=== PATIENT | male | born 1990 | race Caucasian/White ===

== ENCOUNTER 2016-08-04 18:02 | Emergency (ER) | payer OTHER ==
[~2016-08-04] VITALS: Ht 175.3 cm; Wt 100.0 kg
[~2016-08-04 18:02] MED LIST: ATIVAN 1MG T1 MG/TAB PO; BENADRYL50 MG PO; BUSPAR DIVIDOSE15 MG PO; CLEOCIN HC150 MG/CAP PO; DESYREL 100MG100 MG PO; DOXYCYCLINE 10100 MG PO; FLEXERIL 1010 MG/TAB PO; MINIPRESS 1M1 MG/CAP PO; MOBIC 7.5MG7.5 MG PO; MOTRIN 800800 MG/TAB PO; NAPROSYN500 MG PO; NEURONTIN600 MG/TAB PO; NORCO 325 MG-101 TAB PO; NORCO 325 MG-51 TAB PO; NORCO 325 MG-7.1 TAB PO; PAMELOR 10MG10 MG PO; PREDNISONE20 MG PO; PROZAC 20MG20 MG PO; ULTRAM 50MG TAB50 MG PO; VITAMIN D1000 IU PO; ZANAFLEX 4MG TAB4 MG PO; ZOFRAN 4MG T4 MG/TAB PO; ZOFRAN ODT4 MG PO
[2016-08-04 18:03] VITALS: TEMP 97.6
[2016-08-04 18:42] LABS: BASO % 0.4 % (0.0-2.0); EOS # 0.2 (0.0-0.7); EOS % 1.9 % (0-4.0); GRAN # 4.8 (1.4-6.5); GRAN % 59.7 % (42.2-75.2); LYMPH # 2.3 (1.2-3.4); LYMPH % 28.2 % (20.0-51.0); MEAN CELL VOLUME 95 fl (80.0-100.0); MEAN CORPUSCULAR HEMOGLOBIN 31 pg (27.0-31.0); MEAN CORPUSCULAR HGB CONC 33 g/dl (33.0-37.0); MEAN PLATELET VOLUME 9.6 fl (7.4-10.4); MONO # 0.8 (0.1-0.6); MONO % 9.5 % (1.7-9.3); PLATELET COUNT 240 K/mm3 (130-400); RED BLOOD COUNT 3.85 M/mm3 (4.20-5.60); REDCELL DISTRIBUTION WIDTH-CV 12.8 % (11.5-14.5)
[2016-08-04 18:44] LABS: HEMATOCRIT 36.6 % (42.0-52.0)
[2016-08-04 18:58] LABS: ADJUSTED CALCIUM 8.9 mg/dL (8.4-10.2); ALBUMIN 4.2 gm/dL (3.5-5.0); BILIRUBIN,TOTAL 0.7 mg/dL (0.0-1.0); CALCIUM 9.1 mg/dL (8.4-10.2); CREATININE, serum 0.98 mg/dL (0.66-1.25); POTASSIUM 4.3 mmol/L (3.4-5.0); TOTAL PROTEIN 7.7 gm/dL (6.4-8.2)
[2016-08-04 19:38] LABS: PH 7 (5-8); SQUAMOUS EPITHELIAL 0-2 /hpf; URINE APPEARANCE Clear; URINE BACTERIA None Seen /hpf; URINE BILIRUBIN Negative (NEGATIVE); URINE BLOOD Negative (NEGATIVE); URINE COLOR Yellow; URINE GLUCOSE Negative (NEGATIVE); URINE KETONE Negative (NEGATIVE); URINE RBC None Seen /hpf; URINE UROBILINOGEN Negative (NEGATIVE); URINE WBC 0-2 /hpf
[2016-08-04 20:19] VITALS: BP 140/107; PULSE 71
== END 2016-08-04 20:20 | disposition home or self-care (01) ==
LOC: COL.ER 18:02
PROVIDERS: Nurse Practitioner
DX: R10.12 Left upper quadrant pain (principal); I10 Essential (primary) hypertension; Z87.891 Personal history of nicotine dependence
CPT/HCPCS: J1170; J2405; J7030

== ENCOUNTER 2016-08-08 18:07 | Emergency (ER) | payer OTHER ==
[~2016-08-08] VITALS: Ht 175.3 cm; Wt 100.0 kg
[2016-08-08 18:09] VITALS: TEMP 98.4
[2016-08-08 19:24] LABS: BASO % 0.3 % (0.0-2.0); EOS # 0.2 (0.0-0.7); EOS % 2.4 % (0-4.0); GRAN # 5.1 (1.4-6.5); GRAN % 58.3 % (42.2-75.2); HEMATOCRIT 39.7 % (42.0-52.0); HEMOGLOBIN 13.2 g/dl (13.5-18.0); LYMPH # 2.6 (1.2-3.4); LYMPH % 30.3 % (20.0-51.0); MEAN CELL VOLUME 93 fl (80.0-100.0); MEAN CORPUSCULAR HEMOGLOBIN 31 pg (27.0-31.0); MEAN CORPUSCULAR HGB CONC 33 g/dl (33.0-37.0); MEAN PLATELET VOLUME 9.3 fl (7.4-10.4); MONO # 0.7 (0.1-0.6); MONO % 8.5 % (1.7-9.3); PLATELET COUNT 318 K/mm3 (130-400); RED BLOOD COUNT 4.28 M/mm3 (4.20-5.60); REDCELL DISTRIBUTION WIDTH-CV 12.8 % (11.5-14.5); WHITE BLOOD COUNT 8.7 K/mm3 (4.8-10.8)
[2016-08-08 19:25] LABS: ALBUMIN 4.5 gm/dL (3.5-5.0); BILIRUBIN,TOTAL 0.8 mg/dL (0.0-1.0); CALCIUM 9.4 mg/dL (8.4-10.2); CREATININE, serum 0.96 mg/dL (0.66-1.25)
[2016-08-08] MEDS ORDERED: CARAFATE 1GM1 G PO (20:22)
[2016-08-08] MEDS ORDERED: ZOFRAN ODT4 MG PO (20:22)
[2016-08-08] MEDS ORDERED: PROTONIX 40MG T40 MG PO (20:22)
[2016-08-08] MEDS ORDERED: PHENERGAN 25 TA25 MG PO (20:48)
[2016-08-08 20:51] VITALS: BP 112/74; PULSE 64
== END 2016-08-08 20:51 | disposition home or self-care (01) ==
LOC: COL.ER 18:07
PROVIDERS: Emergency Medicine
DX: R10.13 Epigastric pain (principal); R11.10 Vomiting, unspecified
CPT/HCPCS: C9113; J2405; J2550; J7030

== ENCOUNTER → 2016-10-01 | Outpatient (CLI) | payer OTHER ==
[~2016-10-01] MED LIST changes: +BUSPAR5 MG PO; +CARAFATE 1GM1 G PO; +NEURONTIN400 MG/CAP PO; +PHENERGAN 25 TA25 MG PO; +PROTONIX 40MG T40 MG PO; +PROZAC40 MG PO; +ZANAFLEX CAPSULE2 MG PO
== END ==
LOC: COL.RAD 08:11
DX: R11.2 Nausea with vomiting, unspecified (principal); R10.84 Generalized abdominal pain
CPT/HCPCS: A9537

== ENCOUNTER 2016-10-23 16:19 | Emergency (ER) | payer OTHER ==
[~2016-10-23] VITALS: Ht 175.3 cm; Wt 95.5 kg
[~2016-10-23 16:19] MED LIST changes: -BUSPAR5 MG PO; -NEURONTIN400 MG/CAP PO; -PROZAC40 MG PO; -ZANAFLEX CAPSULE2 MG PO
[2016-10-23 16:21] VITALS: BP 155/95; PULSE 100; TEMP 98.5
[2016-10-23] MEDS ORDERED: FLEXERIL 1010 MG/TAB PO (18:02)
== END 2016-10-23 18:41 | disposition home or self-care (01) ==
LOC: COL.ER 16:19
DX: S39.012A Strain of muscle, fascia and tendon of lower back, initial encounter (principal); S30.0XXA Contusion of lower back and pelvis, initial encounter; M62.830 Muscle spasm of back; W10.9XXA Fall (on) (from) unspecified stairs and steps, initial encounter
CPT/HCPCS: J1885; J2360

== ENCOUNTER 2017-02-04 18:55 | Emergency (ER) | payer OTHER ==
[~2017-02-04] VITALS: Ht 175.3 cm; Wt 102.5 kg
[2017-02-04 18:59] VITALS: TEMP 98.8
[2017-02-04] MEDS ORDERED: PROZAC40 MG PO (19:02)
[2017-02-04] MEDS ORDERED: BUSPAR5 MG PO (19:03)
[2017-02-04] MEDS ORDERED: NORCO 325 MG-51 TAB PO (19:04)
[2017-02-04] MEDS ORDERED: NEURONTIN400 MG/CAP PO (19:04)
[2017-02-04] MEDS ORDERED: ZANAFLEX CAPSULE2 MG PO (19:05)
[2017-02-04 19:53] LABS: BASO # 0.1 (0.0-0.2); BASO % 0.5 % (0.0-2.0); EOS # 0.1 (0.0-0.7); EOS % 0.8 % (0-4.0); GRAN # 7.6 (1.4-6.5); GRAN % 69.3 % (42.2-75.2); HEMATOCRIT 41.3 % (42.0-52.0); HEMOGLOBIN 13.8 g/dl (13.5-18.0); LYMPH # 2.5 (1.2-3.4); MEAN CELL VOLUME 94 fl (80.0-100.0); MEAN CORPUSCULAR HEMOGLOBIN 32 pg (27.0-31.0); MEAN CORPUSCULAR HGB CONC 33 g/dl (33.0-37.0); MEAN PLATELET VOLUME 9.7 fl (7.4-10.4); MONO # 0.7 (0.1-0.6); MONO % 6.1 % (1.7-9.3); PLATELET COUNT 308 K/mm3 (130-400); RED BLOOD COUNT 4.38 M/mm3 (4.20-5.60); REDCELL DISTRIBUTION WIDTH-CV 12.4 % (11.5-14.5); WHITE BLOOD COUNT 10.9 K/mm3 (4.8-10.8)
[2017-02-04 20:00] LABS: ADJUSTED CALCIUM 8.9 mg/dL (8.4-10.2); ALBUMIN 4.5 gm/dL (3.5-5.0); BILIRUBIN,TOTAL 0.6 mg/dL (0.0-1.0); CALCIUM 9.3 mg/dL (8.4-10.2); CREATININE, serum 1.04 mg/dL (0.66-1.25); POTASSIUM 3.4 mmol/L (3.4-5.0)
[2017-02-04] MEDS ORDERED: ZOFRAN ODT4 MG PO (21:51)
[2017-02-04 22:13] VITALS: BP 142/90; PULSE 92
== END 2017-02-04 22:14 | disposition home or self-care (01) ==
LOC: COL.ER 18:55
PROVIDERS: Emergency Medicine
DX: K22.6 Gastro-esophageal laceration-hemorrhage syndrome (principal); F17.210 Nicotine dependence, cigarettes, uncomplicated
CPT/HCPCS: J2405; J2550; J7030

== ENCOUNTER 2017-03-07 14:29 | Emergency (ER) | payer OTHER ==
[~2017-03-07] VITALS: Ht 175.3 cm; Wt 104.5 kg
[~2017-03-07 14:29] MED LIST changes: +BUSPAR5 MG PO; +NEURONTIN400 MG/CAP PO; +PROZAC40 MG PO; +ZANAFLEX CAPSULE2 MG PO
[2017-03-07 14:31] VITALS: BP 148/96; TEMP 97.9
[2017-03-07] MEDS ORDERED: MOTRIN 800800 MG/TAB PO (16:27)
[2017-03-07 16:31] VITALS: PULSE 69
== END 2017-03-07 16:32 | disposition home or self-care (01) ==
LOC: COL.ER 14:29
DX: M25.512 Pain in left shoulder (principal); F41.9 Anxiety disorder, unspecified; F43.10 Post-traumatic stress disorder, unspecified; G89.29 Other chronic pain; M54.5 Low back pain; F17.210 Nicotine dependence, cigarettes, uncomplicated; Z98.890 Other specified postprocedural states
CPT/HCPCS: J1885

== ENCOUNTER 2017-09-10 17:30 | Emergency (ER) | payer OTHER ==
[~2017-09-10] VITALS: Ht 175.3 cm; Wt 102.3 kg
[2017-09-10 17:36] VITALS: TEMP 98.1
[2017-09-10 18:05] LABS: BASO # 0.1 (0.0-0.2); BASO % 0.3 % (0.0-2.0); EOS # 0.1 (0.0-0.7); EOS % 0.6 % (0-4.0); GRAN # 11.7 (1.4-6.5); HEMATOCRIT 39.6 % (42.0-52.0); HEMOGLOBIN 13.5 g/dl (13.5-18.0); LYMPH # 2.3 (1.2-3.4); LYMPH % 14.7 % (20.0-51.0); MEAN CELL VOLUME 95 fl (80.0-100.0); MEAN CORPUSCULAR HEMOGLOBIN 32 pg (27.0-31.0); MEAN CORPUSCULAR HGB CONC 34 g/dl (33.0-37.0); MEAN PLATELET VOLUME 9.3 fl (7.4-10.4); MONO # 1.4 (0.1-0.6); MONO % 9.1 % (1.7-9.3); PLATELET COUNT 295 K/mm3 (130-400); RED BLOOD COUNT 4.17 M/mm3 (4.20-5.60); REDCELL DISTRIBUTION WIDTH-CV 11.6 % (11.5-14.5)
[2017-09-10 18:15] LABS: ALBUMIN 4.4 gm/dL (3.5-5.0); BILIRUBIN,TOTAL 0.4 mg/dL (0.0-1.0); C-REACTIVE PROTEIN 0.6 mg/dL (0.0-0.9); CALCIUM 9.1 mg/dL (8.4-10.2); CREATININE, serum 1.61 mg/dL (0.66-1.25); POTASSIUM 3.7 mmol/L (3.4-5.0); TOTAL PROTEIN 7.8 gm/dL (6.4-8.2)
[2017-09-10 18:34] LABS: COLLECTION METHOD CLEAN CATCH
[2017-09-10 18:46] LABS: PH 5 (5-8); SQUAMOUS EPITHELIAL 0-2 /hpf; URINE APPEARANCE Clear; URINE BACTERIA Rare /hpf; URINE BILIRUBIN Negative (NEGATIVE); URINE BLOOD Negative (NEGATIVE); URINE COLOR Straw; URINE GLUCOSE Negative (NEGATIVE); URINE KETONE Negative (NEGATIVE); URINE LEUKOCYTE ESTERASE Negative (NEGATIVE); URINE NITRATE Negative (NEGATIVE); URINE PROTEIN(semi-quant) Negative (NEGATIVE); URINE RBC 0-2 /hpf; URINE UROBILINOGEN Negative (NEGATIVE)
[2017-09-10] MEDS ORDERED: CIPRO 500MG TA500 MG PO (20:47)
[2017-09-10] MEDS ORDERED: NORVASC 5MG5 MG/TAB PO (20:47)
[2017-09-10 20:49] VITALS: BP 168/103; PULSE 84
== END 2017-09-10 20:47 | disposition home or self-care (01) ==
LOC: COL.ER 17:30
PROVIDERS: Nurse Practitioner
DX: I10 Essential (primary) hypertension (principal); N05.9 Unspecified nephritic syndrome with unspecified morphologic changes; R10.31 Right lower quadrant pain; F32.9 Major depressive disorder, single episode, unspecified; F43.10 Post-traumatic stress disorder, unspecified; F17.210 Nicotine dependence, cigarettes, uncomplicated; Z87.442 Personal history of urinary calculi
CPT/HCPCS: J1885; J2405; J7030

== ENCOUNTER 2017-09-14 04:25 | Inpatient (IN) | payer OTHER ==
[~2017-09-14] VITALS: Ht 175.3 cm; Wt 91.8 kg
[~2017-09-14 04:25] MED LIST changes: +CIPRO 500MG TA500 MG PO; +NORVASC 5MG5 MG/TAB PO
[2017-09-14 04:56] LABS: BASO # 0.1 (0.0-0.2); BASO % 0.4 % (0.0-2.0); EOS # 0.1 (0.0-0.7); EOS % 0.7 % (0-4.0); GRAN # 8.5 (1.4-6.5); GRAN % 71.7 % (42.2-75.2); HEMATOCRIT 40.7 % (42.0-52.0); HEMOGLOBIN 13.6 g/dl (13.5-18.0); LYMPH # 2.3 (1.2-3.4); MEAN CELL VOLUME 96 fl (80.0-100.0); MEAN CORPUSCULAR HEMOGLOBIN 32 pg (27.0-31.0); MEAN CORPUSCULAR HGB CONC 33 g/dl (33.0-37.0); MEAN PLATELET VOLUME 9.6 fl (7.4-10.4); MONO # 0.9 (0.1-0.6); MONO % 7.9 % (1.7-9.3); PLATELET COUNT 310 K/mm3 (130-400); RED BLOOD COUNT 4.22 M/mm3 (4.20-5.60); REDCELL DISTRIBUTION WIDTH-CV 11.6 % (11.5-14.5)
[2017-09-14 05:10] LABS: COLLECTION METHOD CLEAN CATCH
[2017-09-14 05:10] LABS: ALBUMIN 4.6 gm/dL (3.5-5.0); BILIRUBIN,TOTAL 0.5 mg/dL (0.0-1.0); C-REACTIVE PROTEIN 2.8 mg/dL (0.0-0.9); CALCIUM 9.6 mg/dL (8.4-10.2); CREATININE, serum 1.91 mg/dL (0.66-1.25); TOTAL PROTEIN 8.3 gm/dL (6.4-8.2)
[2017-09-14 05:17] LABS: MUCOUS Present /lpf; PH 5 (5-8); SQUAMOUS EPITHELIAL None Seen /hpf; URINE APPEARANCE Clear; URINE BACTERIA None Seen /hpf; URINE BILIRUBIN Negative (NEGATIVE); URINE BLOOD 1+ (NEGATIVE); URINE COLOR Yellow; URINE GLUCOSE Negative (NEGATIVE); URINE KETONE Negative (NEGATIVE); URINE LEUKOCYTE ESTERASE Trace (NEGATIVE); URINE NITRATE Negative (NEGATIVE); URINE PROTEIN(semi-quant) 1+ (NEGATIVE); URINE UROBILINOGEN Negative (NEGATIVE)
[2017-09-14 06:05] LABS: INR 1.2 (0.8-3.0); PROTHROMBIN TIME 13.6 SECONDS (9.7-12.8)
[2017-09-14 06:07] LABS: PARTIAL THROMBOPLASTIN TIME 28.8 SECONDS (26.0-37.0)
[2017-09-14 07:36] VITALS: BP 158/110; PULSE 74; TEMP 98
[2017-09-14 11:31] VITALS: BP 169/109; PULSE 76; TEMP 98.6
[2017-09-14 16:45] LABS: COLLECTION METHOD CLEAN CATCH
[2017-09-14 16:54] LABS: PH 7 (5-8); SQUAMOUS EPITHELIAL 0-2 /hpf; URINE APPEARANCE Clear; URINE BACTERIA None Seen /hpf; URINE BILIRUBIN Negative (NEGATIVE); URINE BLOOD Negative (NEGATIVE); URINE COLOR Colorless; URINE GLUCOSE Negative (NEGATIVE); URINE KETONE Negative (NEGATIVE); URINE LEUKOCYTE ESTERASE Negative (NEGATIVE); URINE NITRATE Negative (NEGATIVE); URINE PROTEIN(semi-quant) Negative (NEGATIVE); URINE RBC 0-2 /hpf; URINE UROBILINOGEN Negative (NEGATIVE); URINE WBC 0-2 /hpf
[2017-09-14 17:01] VITALS: BP 148/97; PULSE 84; TEMP 98.7
[2017-09-14 21:09] VITALS: BP 150/97; PULSE 70; TEMP 97.7
[2017-09-15 00:12] VITALS: BP 152/99; PULSE 68; TEMP 98.3
[2017-09-15 03:57] VITALS: BP 152/96; PULSE 66; TEMP 98.4
[2017-09-15 06:04] LABS: BASO % 0.4 % (0.0-2.0); EOS # 0.2 (0.0-0.7); EOS % 2.4 % (0-4.0); GRAN # 3.7 (1.4-6.5); GRAN % 53.3 % (42.2-75.2); HEMOGLOBIN 12.3 g/dl (13.5-18.0); LYMPH # 2.4 (1.2-3.4); LYMPH % 34.2 % (20.0-51.0); MEAN CELL VOLUME 97 fl (80.0-100.0); MEAN CORPUSCULAR HEMOGLOBIN 33 pg (27.0-31.0); MEAN CORPUSCULAR HGB CONC 33 g/dl (33.0-37.0); MEAN PLATELET VOLUME 9.8 fl (7.4-10.4); MONO # 0.7 (0.1-0.6); MONO % 9.6 % (1.7-9.3); PLATELET COUNT 253 K/mm3 (130-400); RED BLOOD COUNT 3.78 M/mm3 (4.20-5.60); REDCELL DISTRIBUTION WIDTH-CV 11.7 % (11.5-14.5)
[2017-09-15 06:05] LABS: HEMATOCRIT 36.8 % (42.0-52.0)
[2017-09-15 06:13] LABS: CALCIUM 8.7 mg/dL (8.4-10.2); CREATININE, serum 1.42 mg/dL (0.66-1.25); MAGNESIUM 1.9 mg/dL (1.6-2.3); POTASSIUM 3.9 mmol/L (3.4-5.0)
[2017-09-15 08:10] VITALS: BP 168/119; PULSE 58; TEMP 98.7
[2017-09-15 12:39] VITALS: BP 151/95; PULSE 72; TEMP 98.5
[2017-09-15] MEDS ORDERED: NORCO 325 MG-51 TAB PO (14:30)
== END 2017-09-15 16:08 | disposition home or self-care (01) | DRG 684 ==
LOC: COL.ER 04:25 → MEDICAL 06:01
PROVIDERS: Emergency Medicine; Internal Medicine Nephrology; Nurse Practitioner Family
DX: N17.9 Acute kidney failure, unspecified (principal); N20.0 Calculus of kidney; T39.395A Adverse effect of other nonsteroidal anti-inflammatory drugs [NSAID], initial encounter; I10 Essential (primary) hypertension; Z23 Encounter for immunization; F43.12 Post-traumatic stress disorder, chronic; G89.29 Other chronic pain; M54.5 Low back pain; M17.0 Bilateral primary osteoarthritis of knee; F17.210 Nicotine dependence, cigarettes, uncomplicated
CPT/HCPCS: 99222-AI; 99239; J0696; J1200; J1644; J2270; J2405; J3010; J7030

== ENCOUNTER 2017-10-14 00:42 | Emergency (ER) | payer OTHER ==
[2017-10-14 00:45] VITALS: TEMP 98.1
[2017-10-14] MEDS ORDERED: NORCO 325 MG-51 TAB PO (01:29)
[2017-10-14] MEDS ORDERED: CLEOCIN HC150 MG/CAP PO (01:29)
[2017-10-14 01:48] VITALS: BP 143/100; PULSE 80
== END 2017-10-14 01:45 | disposition home or self-care (01) ==
LOC: COL.ER 00:42
DX: S02.5XXA Fracture of tooth (traumatic), initial encounter for closed fracture (principal); F43.10 Post-traumatic stress disorder, unspecified; F41.9 Anxiety disorder, unspecified; F17.210 Nicotine dependence, cigarettes, uncomplicated; Z87.442 Personal history of urinary calculi; Z88.0 Allergy status to penicillin; Z88.1 Allergy status to other antibiotic agents; Z88.2 Allergy status to sulfonamides; Z88.5 Allergy status to narcotic agent; X58.XXXA Exposure to other specified factors, initial encounter

== ENCOUNTER 2017-10-29 14:25 | Emergency (ER) | payer OTHER ==
[~2017-10-29] VITALS: Ht 175.3 cm; Wt 101.8 kg
[2017-10-29 14:27] VITALS: TEMP 100.1
[2017-10-29 15:00] LABS: COLLECTION METHOD CLEAN CATCH
[2017-10-29 15:07] LABS: BASO # 0.1 (0.0-0.2); BASO % 0.5 % (0.0-2.0); EOS # 0.2 (0.0-0.7); EOS % 1.6 % (0-4.0); GRAN # 6.6 (1.4-6.5); GRAN % 60.8 % (42.2-75.2); HEMATOCRIT 37.4 % (42.0-52.0); HEMOGLOBIN 12.6 g/dl (13.5-18.0); LYMPH # 3.1 (1.2-3.4); LYMPH % 28.8 % (20.0-51.0); MEAN CELL VOLUME 95 fl (80.0-100.0); MEAN CORPUSCULAR HEMOGLOBIN 32 pg (27.0-31.0); MEAN CORPUSCULAR HGB CONC 34 g/dl (33.0-37.0); MEAN PLATELET VOLUME 9.3 fl (7.4-10.4); MONO # 0.9 (0.1-0.6); PLATELET COUNT 383 K/mm3 (130-400); RED BLOOD COUNT 3.95 M/mm3 (4.20-5.60); REDCELL DISTRIBUTION WIDTH-CV 12.1 % (11.5-14.5)
[2017-10-29 15:14] LABS: ALBUMIN 4.5 gm/dL (3.5-5.0); BILIRUBIN,TOTAL 0.4 mg/dL (0.0-1.0); CALCIUM 10.1 mg/dL (8.4-10.2); CREATININE, serum 1.07 mg/dL (0.66-1.25); POTASSIUM 3.6 mmol/L (3.4-5.0)
[2017-10-29 15:15] LABS: MUCOUS Present /lpf; PH 5 (5-8); SQUAMOUS EPITHELIAL None Seen /hpf; URINE APPEARANCE Hazy; URINE BACTERIA None Seen /hpf; URINE BILIRUBIN Negative (NEGATIVE); URINE BLOOD 3+ (NEGATIVE); URINE COLOR Yellow; URINE GLUCOSE Negative (NEGATIVE); URINE KETONE Negative (NEGATIVE); URINE LEUKOCYTE ESTERASE Negative (NEGATIVE); URINE NITRATE Negative (NEGATIVE); URINE PROTEIN(semi-quant) Negative (NEGATIVE); URINE RBC >50 /hpf; URINE UROBILINOGEN Negative (NEGATIVE)
[2017-10-29] MEDS ORDERED: NORVASC 5MG5 MG/TAB PO (15:20)
[2017-10-29 15:28] LABS: ERYTHROCYTE SEDIMENTATION RATE 16 mm/hr (0-15)
[2017-10-29 15:49] VITALS: BP 135/99; PULSE 94
== END 2017-10-29 15:51 | disposition home or self-care (01) ==
LOC: COL.ER 14:25
PROVIDERS: Family Medicine
DX: T46.4X5A Adverse effect of angiotensin-converting-enzyme inhibitors, initial encounter (principal); I10 Essential (primary) hypertension
CPT/HCPCS: J1100; J1200; J7030